=== PATIENT | female | born 1960 | race Caucasian/White ===

== ENCOUNTER 2018-02-06 07:16 | Day surgery (SDC) | payer BC ==
[2018-02-06] MEDS ORDERED: Lactated Ringer's 500 ML IV ONE (07:53)
[2018-02-06] MEDS ORDERED: Propofol 10 mg/ml Inj (20 ML) ONE (09:03)
[2018-02-06 09:49] VITALS: TEMP 97
[2018-02-06 10:03] VITALS: BP 110/71; PULSE 82; RESP 14; O2SAT 99
== END 2018-02-06 10:00 | disposition home or self-care (01) ==
LOC: H.ENDO 07:16
PROVIDERS: ATTEND Internal Medicine Gastroenterology
DX: Z12.11 Encounter for screening for malignant neoplasm of colon (principal); K21.9 Gastro-esophageal reflux disease without esophagitis; K64.8 Other hemorrhoids; K57.30 Diverticulosis of large intestine without perforation or abscess without bleeding; K29.50 Unspecified chronic gastritis without bleeding; K31.89 Other diseases of stomach and duodenum; R10.13 Epigastric pain
CPT/HCPCS: 43239; 45378; 88305; J2001; J2704; J7120